=== PATIENT | male | born 2000 | race Two or more races ===

== ENCOUNTER 2024-05-30 13:39 | Outpatient (RCR) | payer MEDICAID, SELFPAY ==
--- NOTE | 2024-05-30 14:06 | PTNOTE_ITS ---
PT OP Initial Eval Patient Information Outpatient Physical Therapy Treatment Date: 05/30/24 Visit Reasons: Low back pain Medical Diagnosis: M54.5 Treatment Dx #1: LBP Start of Care: 05/30/24 Date of Onset: 3 months ago Smoking Status Smoking Status: Never smoker Initial Assessment Subjective: Pt is 23 yr old male who reports insidious onset of LBP x3 months. 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 PMH: DM, hand FX Imaging: none Pt goal: to make the pain go away Objective: Trunk ArOM: ? B SB 50% of normal with pain ? Extension: 60% without pain around ? Flexion: to floor ? B rotation: 60% with pain ? R SLR ROM: 75 deg. L SLR: 75 deg ? TTP: moderate paraspinals L2-3, L3-4 ? Neuro: B SLR: negative Assessment: Pt presents with trunk flexion sensitivity and overlying myofascial pain ? and TTP around L5-S1 consistent with ? lower lumbar disc bulge(s) with radiculopathy. Pt requires skilled therapy in order to decrease ? pain and improve sitting/standing tolerance and has fair rehab potential. Eval ?followed by [facility] printout. Short Term and Group Home Goals ? 1. Ind with HEP ? 2. Improved standing tolerance to 60 minutes with <=4/10 LBP ? 3. Decreased lumbar paraspinal TTP from mod to min 4. Pt will lift with proper technique to protect L/S x5 Treatment Plan ? 1. Manual therapy ? 2. Therex ? 3. Modalities as indicated, moist heat, ice, estim, mechanical traction Frequency and Duration: 1-2x a week for 16 visits plus evaluation Certification Dates: 05/30/24 to 08/25/24 Procedure Charges OP PT Eval Mod Complex 30 minutes: Yes
== END 2024-06-15 23:59 | disposition home or self-care (01) ==
LOC: CPTX 13:39
PROVIDERS: PCP Nurse Practitioner Family; Referring Provider Nurse Practitioner Family; Visit Provider Nurse Practitioner Family
DX: M54.50 Low back pain, unspecified (principal); E11.9 Type 2 diabetes mellitus without complications
CPT/HCPCS: 97162